=== PATIENT | male | born 1980 | race Two or more races ===

== ENCOUNTER 2017-05-03 18:55 | Emergency (ER) | payer OTHER ==
[~2017-05-03] VITALS: Ht 172.7 cm; Wt 79.4 kg
[~2017-05-03 18:55] MED LIST: AMOXICILLIN500 MG ORAL; IBUPROFEN600 MG ORAL; NKM
[2017-05-03] MEDS ORDERED: COUGH (19:05)
[2017-05-03] MEDS ORDERED: PROMETHAZINE-C118 M1 ORAL (19:48)
[2017-05-03] MEDS ORDERED: IMODIUM A-1 MG/7.5 M PO (19:48)
[2017-05-03] MEDS ORDERED: AMOXICILLIN500 MG ORAL (19:48)
[2017-05-03 19:57] VITALS: BP 131/82
[2017-05-03 19:58] VITALS: BP 131/82
--- NOTE | 2017-05-03 22:30 | Emergency Room Report ---
History of Present Illness General Chief Complaint: Headache Source: Patient Present Illness [facility] The patient is a 36-year-old male presenting for multiple complaints. He states that he has had diarrhea now for the past 3 days. Described as watery and light brown. He denies any recent travel or known sick contacts.He denies any abdominal pain, nausea, vomiting, or fever. He is also complaining of sore throat and cough for the past 2 weeks. Symptoms have been getting worse. He has not tried any medications at for this. Pain is an 8/10 dull ache to back of throat only. He denies any other symptoms including hemoptysis, SOB, CP, melena, hematochezia Allergies: Coded Allergies: No Known Allergies (Unverified , 02/16/13) Patient History Past Medical History: see triage record Pertinent Family History: none Reviewed Nursing Documentation: PMH: Agreed, PSxH: Agreed Nursing Documentation-PM Past Medical History: No Stated History Hx Cardiac Problems: No Hx Cancer: No Hx Gastrointestinal Problems: Yes Hx Neurological Problems: No Review of Systems All Other Systems: negative except mentioned in HPI Physical Exam Vital Signs Date Time Temp Pulse Resp B/P (MAP) Pulse Ox O2 Delivery O2 Flow Rate FiO2 05/03/17 18:59 100.4 101 16 131/82 98 Sp02 EP Interpretation: reviewed, normal General Appearance: no apparent distress, alert, GCS 15, non-toxic Head: normocephalic, atraumatic Eyes: bilateral eye normal inspection, bilateral eye PERRL ENT: normal pharynx, normal voice, uvula midline, tonsillar swelling, pharyngeal erythema, tonsillar exudate Neck: full range of motion, supple/symm/no masses Respiratory: chest non-tender, lungs clear, normal breath sounds, speaking full sentences Cardiovascular #1: regular rate, rhythm, no edema Gastrointestinal: normal bowel sounds, non tender, soft, non-distended, no guarding, no rebound Rectal: deferred Genitourinary: normal inspection, no CVA tenderness Musculoskeletal: back normal, gait/station normal, normal range of motion, non- tender Neurologic: alert, oriented x3, responsive, motor strength/tone normal, sensory intact, speech normal Psychiatric: judgement/insight normal, memory normal, mood/affect normal, no suicidal/homicidal ideation Skin: normal color, no rash, warm/dry, well hydrated Medical Decision Making PA Attestation Dr. Perez is my supervising physician. Patient management was discussed with my supervising physician Diagnostic Impression: Primary Impression: Pharyngitis, acute Qualified Codes: J02.9 - Acute pharyngitis, unspecified Additional Impression: Diarrhea Qualified Codes: R19.7 - Diarrhea, unspecified ER Course The patient is a 36-year-old male presenting for URI symptoms as well as diarrhea Differential diagnosis include but not limited to pharyngitis, sinusitis, AOM, bronchitis, PNA Differential diagnoses considered include but not limited to gastroenteritis, pancreatitis, appendicitis Physical exam: Mildly febrile at 100.4F No apparent distress HEENT exam: There is bilateral tonsillar edema, erythema, and exudate. Uvula midline. Moist mucous membranes. There is bilateral cervical lymphadenopathy. Lungs are clear to auscultation bilaterally Skin is warm and dry. No rash Abdomen is soft and nontender. Normal bowel sounds. Nondistended. No guarding The patient will be discharged home with a prescription for amoxicillin, cough medication, A short course of Imodium, and is given ER precautions. Patient will followup with primary care Chest X-Ray Diagnostic Results Chest X-Ray Diagnostic Results : Chest X-Ray Ordered: Yes # of Views/Limited/Complete: 1 View Indication: Other - cough EP Interpretation: Yes PA Xray: Interpretation reviewed, by supervising MD, and agrees with findings. Interpretation: no consolidation, no effusion, no pneumothorax, no acute cardiopulmonary disease Impression: No acute disease Electronically Signed by: Dash Lugo PA-C Last Vital Signs Date Time Temp Pulse Resp B/P (MAP) Pulse Ox O2 Delivery O2 Flow Rate FiO2 05/03/17 19:58 100.4 101 16 131/82 98 Status: improved Disposition: HOME, SELF-CARE Condition: Improved Scripts Amoxicillin* (AMOXIL*) 500 Mg Capsule 500 MG ORAL Q12HR, #14 CAP Prov: LIANETANDASH P.A. 05/03/17 Loperamide Hcl (IMODIUM A-D) 1 Mg/7.5 Ml Liquid 2 MG PO PRN, #200 ML Prov: TERZIANJOANNY P.A. 05/03/17 Codeine/Promethazine Hcl* (PROMETHAZINE-CODEINE SYRUP*) 118 Ml Syrup 5 ML ORAL Q6H Y for For Cough, #118 ML 0 Refills Prov: TERZIAN,DASH P.A. 05/03/17 Referrals: NOT CHOSEN [facility]/,REFERRING (PCP) Patient Instructions: Pharyngitis, Diarrhea, Adult Additional Instructions: I discussed my findings with the patient. All questions and concerns have been answered. Treatment and medication compliance have been addressed. I advised the patient that they need to follow up with PMD in 3-5 days. Return to ED if symptoms worsen, new symptoms arise, or if needed for any reason. Patient verbalized understanding of discharge instructions. Please return to emergency Department if you notice increasing or continuing abdominal pain, fever, blood in stools, or for any other reason DASH LUGO May 03, 2017 22:30
--- NOTE | 2017-05-04 11:19 | Diagnostic Imaging Report ---
Indication: COUGH Technique: One view of the chest Comparison: none Findings: Lungs and pleural spaces are clear. Heart size is normal. Impression: No acute process
== END 2017-05-03 19:58 | disposition home or self-care (01) ==
LOC: EMR 19:35
DX: J02.9 Acute pharyngitis, unspecified (principal); R19.7 Diarrhea, unspecified; R05 Cough
CPT/HCPCS: 71010; 99284